=== PATIENT | male | born 1960 | race African-American/Black ===

== ENCOUNTER 2018-06-01 19:38 | Emergency (ER) | payer OTHER ==
[~2018-06-01] VITALS: Ht 157.5 cm; Wt 65.0 kg
[~2018-06-01 19:38] MED LIST: BACTRIM DS1 TAB OR; NAPROSYN500 MG OR
[2018-06-01 20:40] VITALS: BP 151/84
== END 2018-06-01 20:40 | disposition designated cancer center or children's hospital (05) | DRG 563 ==
LOC: ED 19:38
PROC: 0RSXXZZ Reposition Left Finger Phalangeal Joint, External Approach (ICD-10-PCS; principal; 2018-06-01)
PROC: 2W3KX1Z Immobilization of Left Finger using Splint (ICD-10-PCS; 2018-06-01)
DX: S63.637A Sprain of interphalangeal joint of left little finger, initial encounter (principal); S63.297A Dislocation of distal interphalangeal joint of left little finger, initial encounter; X58.XXXA Exposure to other specified factors, initial encounter; Y93.67 Activity, basketball; Y92.148 Other place in prison as the place of occurrence of the external cause